=== PATIENT | female | born 2005 | race Caucasian/White ===

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

== ENCOUNTER 2023-01-25 18:44 | Outpatient (REF) | payer MEDICAID, SELFPAY ==
[2023-01-25 19:38] LABS: Abs Immature Grans 0.02 10^3/uL (0.0-0.06); Absolute Basophil Count 0.06 10^3/uL (0.0-0.2); Absolute Eosinophil Count 0.21 10^3/uL (0.0-0.7); Absolute Lymphocyte Count 1.82 10^3/uL (1.2-3.4); Absolute Monocyte Count 0.41 10^3/uL (0.1-0.8); Absolute Neutrophil Count 4.33 10^3/uL (1.2-6.7); Basophils % 0.9; Eosinophils % 3.1; HCT 37.5 % (36.0-46.0); HGB 12.8 g/dL (11.2-15.7); Immature Grans % 0.3; Lymphocytes % 26.6; MCH 30.4 pg (27.0-33.0); MCHC 34.1 % (32.0-36.0); MCV 89 fL (80-95); MPV 10.9 fL (8.0-11.0); Neutrophils % 63.1; Platelet Count 326 10^3/uL (130-400); RBC 4.21 10^6/uL (3.93-5.22); RDW 12.3 % (11.7-14.6); WBC 6.85 10^3/uL (4.4-10.8)
[2023-01-25 19:56] LABS: ALT 19 U/L (14-59); AST 19 U/L (15-37); Albumin 4.1 g/dL (3.4-5.0); Alkaline Phosphatase 76 U/L (46-116); Anion Gap 8.8 mmol/L (3-11); BUN 13 mg/dL (7-18); Bilirubin, Total 0.9 mg/dL (0.2-1.0); CO2 26.2 mmol/L (21.0-32.0); CREATININE 0.7 mg/dL (0.55-1.02); Calcium 9.5 mg/dL (8.5-10.1); Chloride 104 mmol/L (98-107); Estimated GFR 127.69 (mL/min/1.73m2); Glucose 92 mg/dL (74-106); Sodium 139 mmol/L (136-145); Total Protein 7.3 g/dL (6.4-8.2)
[2023-01-25 20:10] LABS: Vitamin D 25 Total 19.6 ng/mL (30-100)
== END 2023-01-25 18:45 | disposition home or self-care (01) ==
LOC: NCHCN 18:44
PROVIDERS: PCP Family Medicine; Visit Provider Nurse Practitioner Family
DX: R53.83 Other fatigue (principal); E55.9 Vitamin D deficiency, unspecified
CPT/HCPCS: 80053; 82306; 84443; 85025

== ENCOUNTER 2023-08-20 10:56 | Outpatient (REF) | payer MEDICAID, SELFPAY ==
[2023-08-20 14:50] LABS: Bilirubin Negative (Negative); Blood Negative (Negative); Clarity Clear (Clear); Glucose Negative (Negative); Ketones Negative (Negative); Leukocyte Esterase Negative (Negative); Nitrite Negative (Negative); Urobilinogen 0.2 mg/dL (Up to 0.2)
== END 2023-08-20 10:57 | disposition home or self-care (01) ==
LOC: LBN 10:56
PROVIDERS: PCP Family Medicine; Visit Provider Nurse Practitioner Family
DX: N76.0 Acute vaginitis (principal); B37.31 Acute candidiasis of vulva and vagina; N39.0 Urinary tract infection, site not specified
CPT/HCPCS: 81003; 87480; 87510; 87660

== ENCOUNTER 2025-03-06 14:33 | Outpatient (REF) | payer OTHER, SELFPAY ==
--- NOTE | 2025-03-06 14:20 | PAPFT_PTH ---
PATIENT: Cherise Gaines LOC: [facility] U#:[id number] AGE/SX: 19/F ROOM: RE03/06/[address]: Chloe Galvan NP : 2005 BED: DIS: 03/06/2025 SPEC #: [id number] RECD: 03/06/25 17:44 STATUS: NATI REDwayne #: [id number] RAHEL: 03/06/25 14:[address]: Chloe Galvan NP DEPT: [facility] Cytology RECD BY: Ayla Cespedes ENTERED: 03/06/25 17:45 SP TYPE: PAPFT OTHR DR: Derick Oviedo Tissues: 1 - CX/ENDOCX FOR PAP SMEARS Procedures: PAP THIN PREP/[facility] Screening Comments: [id number] (CHLAMYDIA/GC)
[2025-03-07 12:41] LABS: Chlamydia Result Negative (Negative); GC Result Negative (Negative)
== END 2025-03-06 14:34 | disposition home or self-care (01) ==
LOC: LBN 14:33
PROVIDERS: PCP Family Medicine; Visit Provider Nurse Practitioner Women's Health
DX: Z12.4 Encounter for screening for malignant neoplasm of cervix (principal)
CPT/HCPCS: 87491; 87591; 88142

== ENCOUNTER 2025-03-22 11:41 | Outpatient (CLI) | payer OTHER, SELFPAY ==
[2025-03-22 13:38] LABS: Abs Immature Grans 0.01 10^3/uL (0.0-0.06); Absolute Basophil Count 0.03 10^3/uL (0.0-0.2); Absolute Eosinophil Count 0.18 10^3/uL (0.0-0.7); Absolute Lymphocyte Count 1.51 10^3/uL (1.2-3.4); Absolute Monocyte Count 0.65 10^3/uL (0.1-0.8); Absolute Neutrophil Count 2.62 10^3/uL (1.2-6.7); Basophils % 0.6 %; Eosinophils % 3.6 %; HGB 12.1 g/dL (11.2-15.7); Immature Grans % 0.2 %; Lymphocytes % 30.2 %; MCH 31.1 pg (27.0-33.0); MCHC 34.6 % (32.0-36.0); MCV 90 fL (80-95); MPV 9.8 fL (8.0-11.0); Neutrophils % 52.4 %; Platelet Count 246 10^3/uL (130-400); RBC 3.89 10^6/uL (3.93-5.22); RDW-SD 39.1 fL
[2025-03-22 14:25] LABS: ALT 17 U/L (14-59); AST 17 U/L (15-37); Albumin 3.7 g/dL (3.4-5.0); Alkaline Phosphatase 50 U/L (46-116); Anion Gap 7.3 mmol/L (3-11); BUN 10 mg/dL (7-18); Bilirubin, Total 0.5 mg/dL (0.2-1.0); CO2 27.7 mmol/L (21.0-32.0); CREATININE 0.8 mg/dL (0.55-1.02); Calcium 8.7 mg/dL (8.5-10.1); Chloride 107 mmol/L (98-107); Estimated GFR 107.44 (mL/min/1.73m2); FREE T4 0.95 ng/dL (0.76-1.46); Glucose 94 mg/dL (74-106); Potassium 3.8 mmol/L (3.5-5.1); Sodium 142 mmol/L (136-145); TSH 1.36 uIU/mL (0.36-3.74); Total Protein 6.8 g/dL (6.4-8.2)
== END 2025-03-22 11:42 | disposition home or self-care (01) ==
LOC: LBO 11:42
PROVIDERS: PCP Family Medicine; Visit Provider Student in an Organized Health Care Education/Training Program
DX: R00.2 Palpitations (principal)
CPT/HCPCS: 36415; 80053; 84439; 84443; 85025

== ENCOUNTER 2025-03-29 10:05 | Outpatient (RCR) | payer OTHER, SELFPAY ==
--- NOTE | 2025-04-03 08:55 | W.HOLTRPT ---
Date of service: 04/03/25 Time of Service: 08:55 Holter Monitor Report Referring Provider:: Naren Colón Indications:: Palpitations Holter Monitor Note: This is a 48-hour Holter monitor. Rhythm throughout was sinus with an average heart rate of 85. Minimum was 56, maximum 145 There were no atrial or ventricular dysrhythmias recorded. No symptoms were reported
== END 2025-04-21 23:59 | disposition home or self-care (01) ==
LOC: CARDOPNVT 10:05
PROVIDERS: PCP Family Medicine; Visit Provider Internal Medicine Cardiovascular Disease
DX: R00.2 Palpitations (principal); Z51.89 Encounter for other specified aftercare
CPT/HCPCS: 93225; 93226

== ENCOUNTER 2025-04-17 19:49 | Outpatient (REF) | payer OTHER, SELFPAY ==
[2025-04-18 19:28] LABS: HIV-1/2 Ag & Ab Screen Negative (Negative)
[2025-04-18 19:34] LABS: Hepatitis C Ab w Rflx HCV PCR Negative (Negative)
== END 2025-04-17 19:50 | disposition home or self-care (01) ==
LOC: NCHCN 19:49
PROVIDERS: PCP Family Medicine; Visit Provider Student in an Organized Health Care Education/Training Program
DX: Z11.4 Encounter for screening for human immunodeficiency virus [HIV] (principal); Z11.59 Encounter for screening for other viral diseases
CPT/HCPCS: 86803; 87389

== ENCOUNTER 2025-11-08 03:44 | Emergency (ER) | payer SELFPAY ==
--- NOTE | 2025-11-08 | DI.US_ITS ---
Exam(s) US PELVIS TRANSVAGINAL EXAM: US PELVIS TRANSVAGINAL CLINICAL HISTORY: LLQ PAIN, EVAL FOR OVARIAN ETIOLOGY. TECHNIQUE: Transabdominal and transvaginal pelvic ultrasound was performed using standard protocol. COMPARISON: No exams were available for comparison FINDINGS: UTERUS: Position: Anteverted. Size: 8.5 long by 3.4 AP by 4.8 transverse cm Endometrium: 0.3 cm. Normal for patient's menstrual status. The IUD is in good position. There is a tiny amount of fluid seen in the cervical canal. Myometrium: Unremarkable. Cervix: Unremarkable. OVARIES: Right: 3.2 x 2.3 x 1.4 cm Cyst or mass: No suspicious cystic or solid masses. Left: 3.0 x 2.2 x 2.1 cm Cyst or mass: No suspicious cystic or solid masses. DOPPLER: Color: Symmetric and uniform flow to both ovaries. CUL-DE-SAC: Free fluid: None. Other: None. IMPRESSION: 1. Normal-appearing uterus with endometrial stripe within normal limits. 2. The IUD is in good position. 3. Sonographically the myometrium and cervix appear grossly unremarkable. 4. Unremarkable bilateral ovaries. DATA REPOSITORY:
[2025-11-08 03:45] VITALS: BP 153/78; PULSE 96; RESP 16; TEMP 36.6; O2SAT 100
--- NOTE | 2025-11-08 03:45 | DI.CT_ITS ---
Exam(s) CT ABDOMEN PELVIS W EXAM: CT ABDOMEN PELVIS W CLINICAL HISTORY: LLQ pain, eval for ovarian etiology/divertic TECHNIQUE: Imaging Protocol: Axial computed tomography images with coronal and sagittal reformatted images were created and reviewed. CONTRAST MATERIAL: Intravenous: Omnipaque 350 Contrast volume:75 mL Oral: No COMPARISON: US ABDOMEN ULTRASOUND (P) from 10/06/2010 FINDINGS: ABDOMEN: Lung Bases: No acute abnormality. Liver: Normal density. No measurable mass. Portal, Superior Mesenteric, and Splenic Veins: Unremarkable. Gallbladder and Biliary Tract: No radiodense calculus or dilation. Pancreas: Normal density, no abnormal calcifications or inflammatory process. Spleen: Normal. Adrenals: No masses seen. Kidneys: Normal size, contour and axis. No radiodense stones or obstructive uropathy. There are right renal simple cysts. No follow-up is recommended. Abdominal Aorta: Abdominal portion non-dilated. Bowel: No obstruction or bowel wall thickening. There is no evidence of appendicitis. There is a moderate amount of stool in the colon suggesting constipation. Peritoneal Cavity: No ascites, collection or mesenteric inflammatory response. No free air. Lymph Nodes: Within normal limits. Bones: Within normal limits for the patient's age. Soft Tissues: Unremarkable. PELVIS: Bladder: Symmetric distention, no gross wall thickening. Reproductive Organs: There is an IUD which is in good position. Region of the cervix appears of decreased attenuation. The endometrial canal appears grossly unremarkable. It does not appear to be distended with fluid. There are follicle seen on the ovaries including a corpus luteal cyst on the right ovary measuring 1.8 cm. Lymph Nodes: Within normal limits. Bones: Within normal limits for the patient's age. IMPRESSION: 1. The cervix appears of diffuse decreased attenuation. Pelvic ultrasound should be considered for further evaluation. No definite endometrial fluid collection is seen at this time. 2. Constipation. 3. The preliminary [facility] report was reviewed. RADIATION DOSE DELIVERED: 282.08mGy.cm Total DLP DATA REPOSITORY: All CT scans at this facility are submitted to the National Radiology Data Registry (NRDR) Dose Index Registry (DIR) with the [employer] (A[employer]). RADIATION OPTIMIZATION: All CT scans at this facility use at least one of these dose optimization techniques: automated exposure control; mA and/or kV adjustment per patient size (includes targeted exams where dose is matched to clinical indication); or iterative reconstruction.
[2025-11-08 03:49] VITALS: BP 153/78; PULSE 96; RESP 16; TEMP 36.6; O2SAT 100
--- NOTE | 2025-11-08 03:52 | ED.GENADUL_ITS ---
Discharge Plan Disposition Patient Disposition: Home Discharge Details Clinical Impression: Abdominal pain, Constipation, IUD (intrauterine device) in place Primary Care Provider: Derick Oviedo ED Provider: Derick Comer Home Meds and New Rx's Prescriptions: Continued Radha 14 mcg/24 hr (3 yrs) 13.5 mg intrauterine device 1 device intrauterine ONCE Rx Instructions: as a single dose escitalopram oxalate 10 mg tablet 10 mg PO DAILY Patient Comments: TAKE ONE TABLET BY MOUTH EVERY DAY Discharge Instructions Additional Instructions: You are seen in the emergency department for your abdominal pain. Your CAT scan showed no sign of any dangerous processes in your abdomen. Your transvaginal ultrasound shows that your IUD is in good position and the you have a normal- appearing uterus. You are found to be mildly constipated. Please ensure you drink plenty of water get plenty of exercise at take [id number] stool softeners as needed. As we discussed if you develop significant abdominal pain nausea vomiting does not stop or if you have any other concerns please return to the emergency department. Stand Alone Forms: Portal Information Discharge Data Discharge Date/Time-TO BE ENTERED AT DEPARTURE: 11/08/25 10:30 HPI General Date/Time Provider Initiated Documentation: 11/08/25 03:45 . HPI Narrative: DOCUMENTATION WAS PREFORMED [facility]ING [facility]. PLEASE ALSO REFER TO PAPER CHARTING FOR COMPLETE RECORD This is a pleasant 20-year-old female who presents today for left lower quadrant abdominal pain. Pain started about 2 hours ago at 2 AM, sharp in nature, however it comes and goes with severe cramping components as well. She has associated nausea but no vomiting. No diarrhea. Has been about 3 weeks since her last menstrual cycle. She denies any vaginal discharge or history of STDs. She denies any fever or chills. No urinary complaints. She has not taken any NSAID therapy. No other modifying factors. Related Data Home Medications ?Medication ?Instructions ?Recorded ?Confirmed levonorgestrel 14 mcg/24 hr (up to 1 device intrauteri ne ONCE 03/06/25 11/08/25 3 yrs) 13.5 mg intrauterine device (Radha) escitalopram oxalate 10 mg tablet 10 mg PO DAILY 11/0811/08/25 Allergies Allergy/AdvReac Type Severity Reaction Status Date / Time eggs Allergy Intermediate Hives Uncoded 03/06/25 14:01 General Stated Complaint: Abd Prob AROLDO: 3 Exam Narrative Exam Narrative: 1.Const: Well-nourished, Well-developed, appearing stated age 2.Eyes: PERRL, no conjunctival injection, and symmetrical lids. 3.ENT: Atraumatic external nose and ears. Moist MM. Neck: Symmetric, trachea midline, No thyromegaly. 4.CVS: +S1/S2, Peripheral pulses 2+ and equal in all extremities. Brisk capillary refill in all extremities. 5.RESP: Unlabored respiratory effort. Clear to auscultation bilaterally. No wheezes rales or rhonchi 6.GI: Soft, nondistended. Mild left lower quadrant abdominal tenderness on palpation. No guarding or rebound. No flank or CVA tenderness. No pain at McBurney's point. Negative Gutierrez sign. 7.MSK: Normocephalic/Atraumatic, Extremities w/o deformity or ttp No cyanosis or clubbing, Normal movement of all extremities 8.Skin: Warm, Dry. No rashes or lesions. 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 Sensation grossly intact, no focal neurologic deficits. 10.Psych: (AAO) x3. Appropriate mood and affect Course Vital Signs Vital signs: Vital Signs Temperature 36.6 C 11/08/25 03:45 Pulse 96 H 11/08/25 03:45 Respiratory Rate 16 11/08/25 03:45 Blood Pressure 153/78 H 11/08/25 03:45 Pulse Oximetry 100 11/08/25 03:45 Temperature 36.6 C 11/08/25 03:49 Temperature Source Temporal Artery Scan 11/08/25 03:49 Pulse 96 H 11/08/25 03:49 Respiratory Rate 16 11/08/25 03:49 Blood Pressure 153/78 H 11/08/25 03:49 Blood Pressure Position Sitting 11/08/25 03:49 Pulse Oximetry 100 11/08/25 03:49 Oxygen Delivery Method Room Air 11/08/25 03:49 Oxygen Flow Rate 0 11/08/25 03:49 Pain Level 5 11/08/25 03:49 Medical Decision Making DOCUMENTATION WAS PREFORMED [facility]URING [facility]. PLEASE ALSO REFER TO PAPER CHARTING FOR COMPLETE RECORD This is a pleasant 20-year-old female who presents today for left lower quadrant abdominal pain. Pain started about 2 hours ago at 2 AM, sharp in nature, however it comes and goes with severe cramping components as well. She has associated nausea but no vomiting. No diarrhea. Has been about 3 weeks since her last menstrual cycle. She denies any vaginal discharge or history of STDs. She denies any fever or chills. No urinary complaints. She has not taken any NSAID therapy. No other modifying factors. Exam demonstrates a well-appearing female, mild left lower quadrant abdominal pain and tenderness on palpation. No flank or CVA tenderness. No pain at McBurney's point, negative Gutierrez sign. No suprapubic tenderness. Differential includes diverticulitis, ovarian cyst, however symptoms do not appear consistent with ovarian torsion. No vaginal discharge or history of STDs to suggest PID. We will treat with IV NSAID therapy with Toradol and Ofirmev, get CT imaging, check UA, rehydrate monitor closely and reassess. Documentation performed after downtime: Atypical findings were noted on CT scan, with potential for concern for mass in the vaginal vault. Vaginal exam was performed with female nurse Rosita at bedside. Scant amount of brown discharge was noted. Testing was sent for vaginal path smear, as well as gonorrhea and chlamydia. Radiology recommended ultrasonography. Patient was signed out to my colleague Dr. Comer for follow- up on imaging. Patient felt well at time of signout. Pain and symptoms had completely resolved. FINDINGS: UTERUS: Position: Anteverted. Size: 8.5 long by 3.4 AP by 4.8 transverse cm Endometrium: 0.3 cm. Normal for patient's menstrual status. The IUD is in good position. There is a tiny amount of fluid seen in the cervical canal. Myometrium: Unremarkable. Cervix: Unremarkable. OVARIES: Right: 3.2 x 2.3 x 1.4 cm Cyst or mass: No suspicious cystic or solid masses. Left: 3.0 x 2.2 x 2.1 cm Cyst or mass: No suspicious cystic or solid masses. DOPPLER: Color: Symmetric and uniform flow to both ovaries. CUL-DE-SAC: Free fluid: None. Other: None. IMPRESSION: 1. Normal-appearing uterus with endometrial stripe within normal limits. 2. The IUD is in good position. 3. Sonographically the myometrium and cervix appear grossly unremarkable. 4. Unremarkable bilateral ovaries. ABDOMEN: Lung Bases: No acute abnormality. Liver: Normal density. No measurable mass. Portal, Superior Mesenteric, and Splenic Veins: Unremarkable. Gallbladder and Biliary Tract: No radiodense calculus or dilation. Pancreas: Normal density, no abnormal calcifications or inflammatory process. Spleen: Normal. Adrenals: No masses seen. Kidneys: Normal size, contour and axis. No radiodense stones or obstructive uropathy. There are right renal simple cysts. No follow-up is recommended. Abdominal Aorta: Abdominal portion non-dilated. Bowel: No obstruction or bowel wall thickening. There is no evidence of appendicitis. There is a moderate amount of stool in the colon suggesting constipation. Peritoneal Cavity: No ascites, collection or mesenteric inflammatory response. No free air. Lymph Nodes: Within normal limits. Bones: Within normal limits for the patient's age. Soft Tissues: Unremarkable. PELVIS: Bladder: Symmetric distention, no gross wall thickening. Reproductive Organs: There is an IUD which is in good position. Region of the cervix appears of decreased attenuation. The endometrial canal appears grossly unremarkable. It does not appear to be distended with fluid. There are follicle seen on the ovaries including a corpus luteal cyst on the right ovary measuring 1.8 cm. Lymph Nodes: Within normal limits. Bones: Within normal limits for the patient's age. IMPRESSION: 1. The cervix appears of diffuse decreased attenuation. Pelvic ultrasound should be considered for further evaluation. No definite endometrial fluid collection is seen at this time. 2. Constipation. 3. The preliminary [facility] report was reviewed. 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 Sexually active: Yes Do you think of yourself as: straight/heterosexual Current gender identity: female What is your relationship status?: living with partner Panel score (0-1 are the most socially isolated patients): 1 What type of physical activity do you participate in: regular exercise Frequency: 1-2 times per week Seatbelt use: always Helmet use: Yes Do you feel safe at home: Yes Do you feel safe in your relationship?: Yes Female Reproductive History Menstrual Age of Menarche: 10 Duration of menses: 3-5 days control method: progestin IUCD History History 0 Para Hx # Term Pregnancies Multiple births Hx # Pregnancies Ectopic pregnancies AB induced Hx Number of Living Children AB spontaneous
[2025-11-08] MEDS: ACETAMINOPHEN 1,000 MG/100 ML BAG 400 MG IVPB (03:57)
[2025-11-08] MEDS: Lactated Ringers 1,000 ML 1000 ML IV (03:58)
[2025-11-08] MEDS: Ketorolac 15 MG/ML VIAL IVP (03:58)
--- NOTE | 2025-11-08 07:48 | DI.[facility]_ITS ---
PROCEDURE INFORMATION: Exam: CT Abdomen And Pelvis With Contrast Exam date and time: 11/08/2025 5:12 AM Age: 20 years old Clinical indication: Abdominal pain; Localized; Left lower quadrant (llq); Llq pain, eval for ovarian etiology/devertic TECHNIQUE: Imaging protocol: Computed tomography of the abdomen and pelvis with contrast. Radiation optimization: All CT scans at this facility use at least one of these dose optimization techniques: automated exposure control; mA and/or kV adjustment per patient size (includes targeted exams where dose is matched to clinical indication); or iterative reconstruction. Contrast material: [id number]; Contrast volume: 75 ml; Contrast route: INTRAVENOUS (IV); COMPARISON: No relevant prior studies available. FINDINGS: Lungs: No consolidation in the visualized lung bases. Liver: No hepatomegaly. There are no enhancing liver masses. Gallbladder and biliary ducts: No calcified stones. No ductal dilation. Pancreas: Normal in size and homogeneous enhancement. No ductal dilation. Spleen: Normal. No splenomegaly. Adrenal glands: Normal. No mass. Kidneys and ureters: There is no hydronephrosis. No renal or obstructive ureteral calculi are identified. In the right kidney, there is a 1.7 cm simple appearing cyst. Additional subcentimeter hypodensities are present, too small to characterize but likely cysts. Stomach and bowel: There is moderate fecal burden throughout the colon suggestive of constipation. Appendix: No evidence of appendicitis. Intraperitoneal space: No free air. No significant fluid collection. Vasculature: There is no abdominal aortic aneurysm. Lymph nodes: No enlarged retroperitoneal or mesenteric lymph nodes. Urinary bladder: The bladder shows a normal contour and is free of calcific opacities. Reproductive: There is a T-shaped intrauterine device in appropriate position. Masslike density in the lower uterine segment with decreased 6 enhancement the of uncertain etiology, possible hematoma. Bilateral ovarian small follicles. 12 mm hemorrhagic cyst versus corpus luteum in the left ovary. Bones/joints: No acute fracture. Soft tissues: Normal. IMPRESSION: 1. There is moderate fecal burden throughout the colon suggestive of constipation. 2. Masslike density in the lower uterine segment with decreased enhancement of uncertain etiology, possible hematoma. Consider correlation with pelvic ultrasound and beta HCG for further characterization. 3. A 12 mm hemorrhagic cyst versus corpus luteum in the left ovary. Findings were discussed with RENALDO GIRON at 11/08/2025 6:14 AM EST. Dictated and Authenticated by: Rodolfo Vance MD. Orderin Rodrigue Taylor MD
--- NOTE | 2025-11-08 08:17 | ED.PROG_ITS ---
Date of service: 11/08/25 Time of Service: 08:18 Medical Decision Making I received signout on this 20-year-old female in the emergency department with nausea but no vomiting and LLQ pain that began at 2am. Sexually active w/single partner. Sharp pain w/aching component. Has an IUD. Constipated. No vaginal discharge. Labs showed mild hypoK for which she received IV & oral repletion. Reassuring pelvic exam. CT ordered and concerning for a cervical and vaginal wall abnormality. Small L ovarian cyst. Negative hCG. Feels improved follow NSAIDs. ?Pending TVUS, GC chlamydia probes and Vag path. 9:20 AM I reviewed the patient's final CT abdomen pelvis read which showed no definitive endometrial fluid collection noted constipation. IUD in good position. Decreased attenuation cervix for which transvaginal ultrasound was advised. Transvaginal ultrasound revealed normal-appearing uterus endometrial stripe within normal limits. IUD in good position. Unremarkable bilateral ovaries. I met with the patient. She was feeling improved. We discussed that she should return for any worsening pain or any other concerns. She understood return indications was discharged with an empiric trial of expectant outpatient management. Discharge Plan Disposition Patient Disposition: Home Discharge Details Clinical Impression: Abdominal pain, Constipation, IUD (intrauterine device) in place Primary Care Provider: Derick Oviedo ED Provider: Derick Comer Home Meds and New Rx's Prescriptions: Continued Radha 14 mcg/24 hr (3 yrs) 13.5 mg intrauterine device 1 device intrauterine ONCE Rx Instructions: as a single dose escitalopram oxalate 10 mg tablet 10 mg PO DAILY Patient Comments: TAKE ONE TABLET BY MOUTH EVERY DAY Discharge Instructions Additional Instructions: You are seen in the emergency department for your abdominal pain. Your CAT scan showed no sign of any dangerous processes in your abdomen. Your transvaginal ultrasound shows that your IUD is in good position and the you have a normal- appearing uterus. You are found to be mildly constipated. Please ensure you drink plenty of water get plenty of exercise at take [id number] stool softeners as needed. As we discussed if you develop significant abdominal pain nausea vomiting does not stop or if you have any other concerns please return to the emergency department. Stand Alone Forms: Portal Information Discharge Data Discharge Date/Time-TO BE ENTERED AT DEPARTURE: 11/08/25 10:30
[2025-11-08 08:30] VITALS: BP 108/69; PULSE 90; RESP 18; TEMP 36.9; O2SAT 99
[2025-11-08] MEDS: Omnipaque 350 MG/ML 100 ML BTL IJ (08:49)
[2025-11-08] MEDS: Normal Saline Flush 10 ML SYR IVP (08:50)
[2025-11-08] MEDS: Normal Saline - Diluent 50 ML VIAL IJ (08:50)
[2025-11-08 10:28] VITALS: BP 110/73; PULSE 77; RESP 15; O2SAT 100
[2025-11-08 11:03] LABS: ALT 11 U/L (10-49); AST 19 U/L (<34); Albumin 4.5 g/dL (3.2-5.0); Alkaline Phosphatase 56 U/L (46-116); Anion Gap 8.7 mmol/L (3-11); BUN 14 mg/dL (9-23); Bilirubin, Total 0.5 mg/dL (0.2-1.2); CO2 26.3 mmol/L (20.0-31.0); Calcium 9.4 mg/dL (8.3-10.6); Chloride 107 mmol/L (98-107); Glucose 96 mg/dL (74-106); Potassium 3.8 mmol/L (3.5-5.1); Sodium 142 mmol/L (136-145); Total Protein 7.4 g/dL (5.7-8.2)
[2025-11-08 11:07] LABS: Glucose Negative (Negative)
[2025-11-08 13:30] LABS: HCT 38.0 % (36.0-46.0); HGB 13.2 g/dL (11.2-15.7); MCH 30.9 pg (27.0-33.0); MCHC 34.7 % (32.0-36.0); MCV 89 fL (80-95); MPV 9.6 fL (8.0-11.0); Platelet Count 321 10^3/uL (130-400); RBC 4.27 10^6/uL (3.93-5.22); RDW 11.6 % (11.7-14.6); RDW-SD 37.1 fL; WBC 8.00 10^3/uL (4.4-10.8)
[2025-11-08 13:31] LABS: Abs Immature Grans 0.03 10^3/uL (0.0-0.06); Immature Grans % 0.4 %
[2025-11-09 11:03] LABS: Chlamydia Result Negative (Negative); GC Result Negative (Negative)
== END 2025-11-08 10:30 | disposition home or self-care (01) ==
PROVIDERS: Student in an Organized Health Care Education/Training Program; Emergency Provider Emergency Medicine; PCP Family Medicine
DX: R10.32 Left lower quadrant pain; K59.00 Constipation, unspecified; R11.0 Nausea; Z97.5 Presence of (intrauterine) contraceptive device
CPT/HCPCS: 00123; 80053; 87491; 87591; 96361; 96374; 96375; 99285; 74177; 76830; 76856; 81003; 83605; 85025; 87086; 87480; 87510; 87660; 99283; J0131; J1885; J3490